=== PATIENT | male | born 1940 | race Caucasian/White ===

== ENCOUNTER 2023-08-05 06:54 | Inpatient (IN) ==
[2023-08-02 10:51] LABS: Basophils # (Auto) 0.03 K/mcL (0.00-0.30); Basophils % (Auto) 0.2 % (0.0-2.0); Eosinophils # (Auto) 0.04 K/mcL (0.00-0.70); Eosinophils % (Auto) 0.3 % (0.0-7.0); Hematocrit 28.6 % (40.1-51.0); Lymphocytes % (Auto) 5.4 % (15.5-49.0); Mean Cell Volume 85.6 fL (80.0-100.0); Mean Corpuscular HGB Conc 31.5 g/dL (31.0-36.0); Mean Platelet Volume 11.1 fL (8.8-12.5); Monocytes # (Auto) 0.75 K/mcL (0.10-0.90); Monocytes % (Auto) 5.8 % (1.0-12.0); Neutrophils % (Auto) 87.7 % (38.0-78.0); Platelet Count 267 K/mcL (140-440); RBC 3.34 M/mcL (4.63-6.08); Red Cell Distribution Width 17.5 % (11.5-14.5)
[2023-08-02 11:08] LABS: Blood Urea Nitrogen 48 mg/dL (8-23); Calcium 11.2 mg/dL (8.6-10.4); Carbon Dioxide 18 mmol/L (22-30); Chloride 103 mmol/L (96-108); Glomerular Filtration Rate 22; Glucose 105 mg/dL (70-105)
[2023-08-02 13:11] LABS: Hemoglobin A1C 5.8 % Hgb (4.0-6.0)
[2023-08-02 14:13] LABS: INR 3.2 (0.9-1.1)
[2023-08-05 07:18] LABS: Basophils # (Auto) 0.04 K/mcL (0.00-0.30); Basophils % (Auto) 0.3 % (0.0-2.0); Eosinophils # (Auto) 0.06 K/mcL (0.00-0.70); Eosinophils % (Auto) 0.5 % (0.0-7.0); Hematocrit 24.7 % (40.1-51.0); Hemoglobin 7.7 g/dL (13.7-17.5); Lymphocytes # (Auto) 1.15 K/mcL (1.50-4.80); Lymphocytes % (Auto) 9.2 % (15.5-49.0); Mean Cell Volume 85.5 fL (80.0-100.0); Mean Corpuscular HGB Conc 31.2 g/dL (31.0-36.0); Mean Platelet Volume 10.9 fL (8.8-12.5); Monocytes # (Auto) 0.75 K/mcL (0.10-0.90); Neutrophils % (Auto) 83.3 % (38.0-78.0); Platelet Count 299 K/mcL (140-440); RBC 2.89 M/mcL (4.63-6.08); Red Cell Distribution Width 17.4 % (11.5-14.5); WBC 12.6 K/mcL (4.5-11.0)
[2023-08-05 07:41] LABS: ALT/SGPT 18 U/L (<40); AST/SGOT 35 U/L (<40); Albumin 3.3 gm/dL (3.2-5.2); Albumin/Globulin Ratio 1.1 (1.0-2.3); Alkaline Phosphatase 77 U/L (39-117); Bilirubin,Total 0.8 mg/dL (0.1-1.0); Blood Urea Nitrogen 46 mg/dL (8-23); Calcium 11.2 mg/dL (8.6-10.4); Carbon Dioxide 15 mmol/L (22-30); Chloride 105 mmol/L (96-108); Globulin 2.9 gm/dL (2.2-3.7); Glomerular Filtration Rate 26; Glucose 183 mg/dL (70-105)
[2023-08-05 08:30] LABS: INR 2.1 (0.9-1.1); Prothrombin Time 24.3 sec (11.9-14.5)
[2023-08-05] MEDS ORDERED: POTASSIUM CHLORIDE 40 MEQ in DEXTROSE 5% IN WATER 500 ML IV PRN (12:14)
[2023-08-05] MEDS ORDERED: POLYETHYLENE GLYCOL 3350 17 GM PACKET PO PRN (12:14)
[2023-08-05] MEDS ORDERED: ONDANSETRON 4 MG/2 ML VIAL IV PRN (12:14)
[2023-08-05] MEDS ORDERED: POTASSIUM CHLORIDE 20 MEQ TABLET PO PRN ×2 (12:14)
[2023-08-05] MEDS ORDERED: IPRATROPIUM/ALBUTEROL 3 ML AMPUL.NEB NEB PRN (12:14)
[2023-08-05] MEDS ORDERED: METOPROLOL TARTRATE 5 MG/5 ML VIAL IV PRN (12:14)
[2023-08-05] MEDS: SODIUM BICARBONATE 650 MG TABLET PO SCH (12:45)
[2023-08-05] MEDS: 0.9 % SODIUM CHLORIDE 1,000 ML IV SCH (13:34)
[2023-08-05] MEDS: LACTATED RINGERS 1,000 ML IV ONE (14:58)
[2023-08-05] MEDS: 0.9 % SODIUM CHLORIDE 250 ML IV SCH (15:35)
[2023-08-05 16:58] LABS: Appearance,Urine HAZY (Clear); Bilirubin,Urine Negative (Negative); Color,Urine AMBER; Culture Indicated,Urine No; Glucose,Urine (UA) Negative (Negative); Ketones,Urine Negative (Negative); Leukocyte Esterase,Urine Negative /uL (Negative); Nitrate,Urine Negative (Negative); Protein,Urine >=500 mg/dL (Negative); Specific Gravity,Urine 1.018 (1.000-1.035); Urine RBC > 182 /hpf (0-1); Urine Squamous Epithelial Cell 0 /hpf (0-4); Urine WBC 0 /hpf (0-4)
[2023-08-05] MEDS: predniSONE 5 MG TABLET PO SCH (17:57)
[2023-08-05] MEDS: AMIODARONE HCL 200 MG TABLET PO SCH (17:57)
[2023-08-05 17:58] LABS: Hematocrit 29.2 % (40.1-51.0); Hemoglobin 9.2 g/dL (13.7-17.5)
[2023-08-05] MEDS: DOCUSATE SODIUM 100 MG CAPSULE PO SCH (20:26)
[2023-08-05] MEDS: ceFAZolin 2 GM in DEXTROSE 5% IN WATER 50 ML IV SCH (21:37)
[2023-08-05] MEDS: GENTAMICIN SULFATE 210 MG in 0.9 % SODIUM CHLORIDE 250 ML IV SCH (21:37)
[2023-08-06 05:58] LABS: Basophils # (Auto) 0.02 K/mcL (0.00-0.30); Basophils % (Auto) 0.2 % (0.0-2.0); Eosinophils # (Auto) 0.05 K/mcL (0.00-0.70); Eosinophils % (Auto) 0.5 % (0.0-7.0); Hematocrit 24.3 % (40.1-51.0); Lymphocytes # (Auto) 0.61 K/mcL (1.50-4.80); Lymphocytes % (Auto) 5.5 % (15.5-49.0); Mean Cell Volume 84.7 fL (80.0-100.0); Mean Corpuscular HGB Conc 32.9 g/dL (31.0-36.0); Monocytes % (Auto) 7.3 % (1.0-12.0); Neutrophils % (Auto) 85.7 % (38.0-78.0); Platelet Count 235 K/mcL (140-440); RBC 2.87 M/mcL (4.63-6.08); Red Cell Distribution Width 16.6 % (11.5-14.5)
[2023-08-06 06:37] LABS: ALT/SGPT 13 U/L (<40); AST/SGOT 29 U/L (<40); Albumin/Globulin Ratio 1.2 (1.0-2.3); Alkaline Phosphatase 69 U/L (39-117); Bilirubin,Direct 0.5 mg/dL (<0.3); Blood Urea Nitrogen 35 mg/dL (8-23); Calcium 10.8 mg/dL (8.6-10.4); Carbon Dioxide 20 mmol/L (22-30); Chloride 108 mmol/L (96-108); Globulin 2.5 gm/dL (2.2-3.7); Glomerular Filtration Rate 37; Glucose 104 mg/dL (70-105); Lactate Dehydrogenase 204 U/L (135-225); Phosphorous 1.9 mg/dL (2.5-4.5); Triglycerides 71 mg/dL (<150); Uric Acid 6.3 mg/dL (2.5-8.0)
[2023-08-06] MEDS: LEVOTHYROXINE SODIUM 112 MCG TABLET PO SCH (08:03)
[2023-08-06] MEDS: ALLOPURINOL 100 MG TABLET PO SCH (08:03)
[2023-08-06] MEDS: ATORVASTATIN 10 MG TABLET PO SCH (08:03)
[2023-08-06] MEDS: SODIUM BICARBONATE 650 MG TABLET PO SCH (08:03)
[2023-08-06] MEDS: SODIUM PHOSPHATE 30 MMOL in DEXTROSE 5% IN WATER 500 ML IV SCH (08:45)
[2023-08-06 09:45] LABS: INR 1.7 (0.9-1.1); Prothrombin Time 20.8 sec (11.9-14.5)
[2023-08-06] MEDS: LACTATED RINGERS 500 ML IV ONE (09:55)
[2023-08-06 12:20] LABS: Hemoglobin 7.8 g/dL (13.7-17.5)
[2023-08-06] MEDS: 0.9 % SODIUM CHLORIDE 250 ML IV SCH (13:15)
[2023-08-07 07:20] LABS: Basophils # (Auto) 0.02 K/mcL (0.00-0.30); Basophils % (Auto) 0.2 % (0.0-2.0); Eosinophils # (Auto) 0.07 K/mcL (0.00-0.70); Eosinophils % (Auto) 0.7 % (0.0-7.0); Hematocrit 26.4 % (40.1-51.0); Hemoglobin 8.6 g/dL (13.7-17.5); Lymphocytes # (Auto) 0.75 K/mcL (1.50-4.80); Lymphocytes % (Auto) 7.8 % (15.5-49.0); Mean Cell Volume 85.4 fL (80.0-100.0); Mean Corpuscular HGB Conc 32.6 g/dL (31.0-36.0); Mean Platelet Volume 10.9 fL (8.8-12.5); Monocytes # (Auto) 0.59 K/mcL (0.10-0.90); Monocytes % (Auto) 6.1 % (1.0-12.0); Neutrophils % (Auto) 84.5 % (38.0-78.0); Platelet Count 241 K/mcL (140-440); RBC 3.09 M/mcL (4.63-6.08); Red Cell Distribution Width 16.9 % (11.5-14.5); WBC 9.6 K/mcL (4.5-11.0)
[2023-08-07 07:28] LABS: ALT/SGPT 13 U/L (<40); AST/SGOT 30 U/L (<40); Albumin 2.9 gm/dL (3.2-5.2); Albumin/Globulin Ratio 1.1 (1.0-2.3); Alkaline Phosphatase 70 U/L (39-117); Bilirubin,Direct 0.5 mg/dL (<0.3); Blood Urea Nitrogen 24 mg/dL (8-23); Calcium 10.8 mg/dL (8.6-10.4); Carbon Dioxide 22 mmol/L (22-30); Chloride 104 mmol/L (96-108); Globulin 2.6 gm/dL (2.2-3.7); Glomerular Filtration Rate 56; Glucose 90 mg/dL (70-105); Lactate Dehydrogenase 210 U/L (135-225); Triglycerides 61 mg/dL (<150); Uric Acid 4.9 mg/dL (2.5-8.0)
[2023-08-07] MEDS ORDERED: fentaNYL 100 MCG/2 ML VIAL ONE (08:34)
[2023-08-07] MEDS ORDERED: PROPOFOL 200 MG/20 ML VIAL IV ONE (08:34)
[2023-08-07] MEDS ORDERED: ROCURONIUM 10 MG/ML ML IV ONE ×2 (08:34→10:12)
[2023-08-07] MEDS: ceFAZolin 2 GM in DEXTROSE 5% IN WATER 50 ML IV SCH (08:41)
[2023-08-07] MEDS ORDERED: PHENYLephrine 1 MG/10 ML SYRINGE (ANEST) ONE (09:46)
[2023-08-07] MEDS ORDERED: SUGAMMADEX SODIUM 200 MG/2 ML VIAL IV ONE (10:55)
[2023-08-07] MEDS ORDERED: IPRATROPIUM/ALBUTEROL 3 ML AMPUL.NEB NEB PRN (10:56)
[2023-08-07] MEDS: IOVERSOL 20 ML VIAL IJ ONE (11:00)
[2023-08-07] MEDS: LIDOCAINE 2% URO-JET 10 ML JEL.PF.APP UR ONE (11:28)
[2023-08-07] MEDS: 0.9 % SODIUM CHLORIDE 250 ML IV SCH (12:08)
[2023-08-07] MEDS: DOPamine 400 MG in PREMIX 1 BAG IV SCH (12:08)
[2023-08-07] MEDS: MAGNESIUM SULFATE 2 GM/50 ML BAG IV PRN (19:15)
[2023-08-07] MEDS: LACTATED RINGERS 500 ML IV ONE (22:40)
[2023-08-08 09:54] LABS: Basophils # (Auto) 0.01 K/mcL (0.00-0.30); Basophils % (Auto) 0.1 % (0.0-2.0); Eosinophils # (Auto) 0.07 K/mcL (0.00-0.70); Eosinophils % (Auto) 0.5 % (0.0-7.0); Hemoglobin 8.8 g/dL (13.7-17.5); Lymphocytes % (Auto) 4.1 % (15.5-49.0); Mean Cell Volume 89.7 fL (80.0-100.0); Mean Corpuscular HGB Conc 31.4 g/dL (31.0-36.0); Mean Platelet Volume 10.6 fL (8.8-12.5); Monocytes # (Auto) 0.93 K/mcL (0.10-0.90); Monocytes % (Auto) 6.3 % (1.0-12.0); Neutrophils % (Auto) 88.5 % (38.0-78.0); Platelet Count 270 K/mcL (140-440); RBC 3.12 M/mcL (4.63-6.08); Red Cell Distribution Width 17.7 % (11.5-14.5); WBC 14.7 K/mcL (4.5-11.0)
[2023-08-08] MEDS: 0.9 % SODIUM CHLORIDE 500 ML IV ONE ×2 (10:13→14:12)
[2023-08-08 13:20] LABS: Albumin 2.2 gm/dL (3.2-5.2); Blood Urea Nitrogen 22 mg/dL (8-23); Calcium 10.8 mg/dL (8.6-10.4); Carbon Dioxide 18 mmol/L (22-30); Chloride 104 mmol/L (96-108); Glomerular Filtration Rate 43; Glucose 115 mg/dL (70-105); Phosphorous 2.4 mg/dL (2.5-4.5)
[2023-08-08] MEDS: 0.9 % SODIUM CHLORIDE 250 ML IV SCH (15:36)
[2023-08-09 06:28] LABS: Basophils # (Auto) 0.03 K/mcL (0.00-0.30); Basophils % (Auto) 0.3 % (0.0-2.0); Eosinophils # (Auto) 0.15 K/mcL (0.00-0.70); Eosinophils % (Auto) 1.3 % (0.0-7.0); Hematocrit 24.9 % (40.1-51.0); Hemoglobin 7.9 g/dL (13.7-17.5); Lymphocytes # (Auto) 0.73 K/mcL (1.50-4.80); Lymphocytes % (Auto) 6.4 % (15.5-49.0); Mean Corpuscular HGB Conc 31.7 g/dL (31.0-36.0); Mean Platelet Volume 10.5 fL (8.8-12.5); Monocytes # (Auto) 0.77 K/mcL (0.10-0.90); Monocytes % (Auto) 6.8 % (1.0-12.0); Neutrophils % (Auto) 84.7 % (38.0-78.0); Platelet Count 276 K/mcL (140-440); RBC 2.83 M/mcL (4.63-6.08); Red Cell Distribution Width 17.5 % (11.5-14.5); WBC 11.4 K/mcL (4.5-11.0)
[2023-08-09 06:49] LABS: ALT/SGPT 8 U/L (<40); AST/SGOT 32 U/L (<40); Albumin 2.8 gm/dL (3.2-5.2); Albumin/Globulin Ratio 1.1 (1.0-2.3); Alkaline Phosphatase 65 U/L (39-117); Bilirubin,Direct 0.5 mg/dL (<0.3); Blood Urea Nitrogen 23 mg/dL (8-23); Calcium 10.9 mg/dL (8.6-10.4); Carbon Dioxide 21 mmol/L (22-30); Chloride 102 mmol/L (96-108); Globulin 2.5 gm/dL (2.2-3.7); Glomerular Filtration Rate 43; Glucose 85 mg/dL (70-105); Lactate Dehydrogenase 209 U/L (135-225); Phosphorous 1.9 mg/dL (2.5-4.5); Triglycerides 73 mg/dL (<150); Uric Acid 4.9 mg/dL (2.5-8.0)
[2023-08-09] MEDS: ACETAMINOPHEN 325 MG TABLET PO PRN (09:19)
[2023-08-09 14:19] LABS: Hematocrit 24.8 % (40.1-51.0); Hemoglobin 7.9 g/dL (13.7-17.5)
[2023-08-10 08:02] LABS: Basophils # (Auto) 0.03 K/mcL (0.00-0.30); Basophils % (Auto) 0.3 % (0.0-2.0); Eosinophils # (Auto) 0.18 K/mcL (0.00-0.70); Eosinophils % (Auto) 1.5 % (0.0-7.0); Hemoglobin 8.2 g/dL (13.7-17.5); Lymphocytes # (Auto) 0.73 K/mcL (1.50-4.80); Lymphocytes % (Auto) 6.3 % (15.5-49.0); Mean Cell Volume 88.1 fL (80.0-100.0); Mean Corpuscular HGB Conc 31.5 g/dL (31.0-36.0); Monocytes # (Auto) 0.76 K/mcL (0.10-0.90); Monocytes % (Auto) 6.5 % (1.0-12.0); Neutrophils % (Auto) 84.6 % (38.0-78.0); Platelet Count 307 K/mcL (140-440); RBC 2.95 M/mcL (4.63-6.08); Red Cell Distribution Width 17.7 % (11.5-14.5); WBC 11.7 K/mcL (4.5-11.0)
[2023-08-10 08:22] LABS: Blood Urea Nitrogen 22 mg/dL (8-23); Calcium 10.9 mg/dL (8.6-10.4); Carbon Dioxide 21 mmol/L (22-30); Chloride 102 mmol/L (96-108); Glomerular Filtration Rate 40; Glucose 88 mg/dL (70-105)
[2023-08-10] MEDS: LACTATED RINGERS 1,000 ML IV ONE (10:13)
[2023-08-10] MEDS: LACTATED RINGERS 1,000 ML IV SCH (17:51)
[2023-08-11 06:09] LABS: Basophils # (Auto) 0.03 K/mcL (0.00-0.30); Basophils % (Auto) 0.3 % (0.0-2.0); Eosinophils # (Auto) 0.15 K/mcL (0.00-0.70); Eosinophils % (Auto) 1.5 % (0.0-7.0); Hematocrit 23.8 % (40.1-51.0); Hemoglobin 7.6 g/dL (13.7-17.5); Lymphocytes # (Auto) 0.72 K/mcL (1.50-4.80); Mean Cell Volume 88.1 fL (80.0-100.0); Mean Corpuscular HGB Conc 31.9 g/dL (31.0-36.0); Mean Platelet Volume 10.8 fL (8.8-12.5); Monocytes # (Auto) 0.67 K/mcL (0.10-0.90); Monocytes % (Auto) 6.5 % (1.0-12.0); Neutrophils % (Auto) 83.7 % (38.0-78.0); Platelet Count 313 K/mcL (140-440); Red Cell Distribution Width 17.3 % (11.5-14.5); WBC 10.3 K/mcL (4.5-11.0)
[2023-08-11] MEDS: LACTATED RINGERS 1,000 ML IV SCH (10:14)
[2023-08-11] MEDS: 0.9 % SODIUM CHLORIDE 250 ML IV SCH (12:21)
[2023-08-11 15:38] LABS: Hematocrit 27.9 % (40.1-51.0)
[2023-08-12 06:32] LABS: Basophils # (Auto) 0.03 K/mcL (0.00-0.30); Basophils % (Auto) 0.3 % (0.0-2.0); Eosinophils # (Auto) 0.14 K/mcL (0.00-0.70); Eosinophils % (Auto) 1.4 % (0.0-7.0); Hematocrit 24.4 % (40.1-51.0); Hemoglobin 7.9 g/dL (13.7-17.5); Lymphocytes # (Auto) 0.71 K/mcL (1.50-4.80); Lymphocytes % (Auto) 7.3 % (15.5-49.0); Mean Cell Volume 87.5 fL (80.0-100.0); Mean Corpuscular HGB Conc 32.4 g/dL (31.0-36.0); Mean Platelet Volume 10.8 fL (8.8-12.5); Monocytes # (Auto) 0.69 K/mcL (0.10-0.90); Monocytes % (Auto) 7.1 % (1.0-12.0); Neutrophils % (Auto) 83.1 % (38.0-78.0); Platelet Count 270 K/mcL (140-440); RBC 2.79 M/mcL (4.63-6.08); Red Cell Distribution Width 16.6 % (11.5-14.5); WBC 9.7 K/mcL (4.5-11.0)
[2023-08-12 07:14] LABS: Albumin 2.6 gm/dL (3.2-5.2); Blood Urea Nitrogen 19 mg/dL (8-23); Calcium 10.7 mg/dL (8.6-10.4); Carbon Dioxide 23 mmol/L (22-30); Chloride 101 mmol/L (96-108); Glomerular Filtration Rate 47; Glucose 76 mg/dL (70-105); Phosphorous 1.5 mg/dL (2.5-4.5)
[2023-08-12] MEDS ORDERED: ceFAZolin 2 GM in DEXTROSE 5% IN WATER 50 ML IV SCH (12:15)
[2023-08-12] MEDS: ceFAZolin 2 GM in DEXTROSE 5% IN WATER 50 ML IV SCH (13:00)
[2023-08-12] MEDS ORDERED: PROPOFOL 200 MG/20 ML VIAL IV ONE (13:07)
[2023-08-12] MEDS ORDERED: fentaNYL 100 MCG/2 ML VIAL ONE (13:07)
[2023-08-12] MEDS ORDERED: ONDANSETRON 4 MG/2 ML VIAL ONE (13:07)
[2023-08-12] MEDS: GENTAMICIN SULFATE 210 MG in 0.9 % SODIUM CHLORIDE 250 ML IV SCH (13:30)
[2023-08-12] MEDS ORDERED: PHENYLephrine 1 MG/10 ML SYRINGE (ANEST) ONE (13:42)
[2023-08-12] MEDS ORDERED: ePHEDrine 50 MG/ML AMPUL IV ONE (13:44)
[2023-08-12] MEDS: IOVERSOL 20 ML VIAL IJ ONE (13:45)
[2023-08-12] MEDS: LIDOCAINE 2% URO-JET 10 ML JEL.PF.APP UR ONE (13:53)
[2023-08-12] MEDS ORDERED: IPRATROPIUM/ALBUTEROL 3 ML AMPUL.NEB NEB PRN (14:12)
[2023-08-12] MEDS: 0.9 % SODIUM CHLORIDE 250 ML IV SCH (15:57)
[2023-08-12 16:27] LABS: Hematocrit 28.1 % (40.1-51.0); Hemoglobin 8.9 g/dL (13.7-17.5)
[2023-08-13 07:23] LABS: Basophils # (Auto) 0.04 K/mcL (0.00-0.30); Basophils % (Auto) 0.4 % (0.0-2.0); Eosinophils # (Auto) 0.08 K/mcL (0.00-0.70); Eosinophils % (Auto) 0.8 % (0.0-7.0); Hematocrit 25.1 % (40.1-51.0); Hemoglobin 8.1 g/dL (13.7-17.5); Lymphocytes # (Auto) 0.74 K/mcL (1.50-4.80); Lymphocytes % (Auto) 7.3 % (15.5-49.0); Mean Cell Volume 87.2 fL (80.0-100.0); Mean Corpuscular HGB Conc 32.3 g/dL (31.0-36.0); Mean Platelet Volume 10.8 fL (8.8-12.5); Monocytes % (Auto) 6.9 % (1.0-12.0); Neutrophils % (Auto) 83.9 % (38.0-78.0); Platelet Count 308 K/mcL (140-440); RBC 2.88 M/mcL (4.63-6.08); Red Cell Distribution Width 16.7 % (11.5-14.5); WBC 10.2 K/mcL (4.5-11.0)
[2023-08-13 07:47] LABS: ALT/SGPT 24 U/L (<40); AST/SGOT 77 U/L (<40); Albumin 2.5 gm/dL (3.2-5.2); Alkaline Phosphatase 70 U/L (39-117); Bilirubin,Direct 0.5 mg/dL (<0.3); Bilirubin,Total 0.8 mg/dL (0.1-1.0); Blood Urea Nitrogen 18 mg/dL (8-23); Calcium 10.5 mg/dL (8.6-10.4); Carbon Dioxide 21 mmol/L (22-30); Chloride 101 mmol/L (96-108); Globulin 2.5 gm/dL (2.2-3.7); Glomerular Filtration Rate 47; Glucose 73 mg/dL (70-105); Lactate Dehydrogenase 292 U/L (135-225); Phosphorous 1.8 mg/dL (2.5-4.5); Triglycerides 70 mg/dL (<150); Uric Acid 3.8 mg/dL (2.5-8.0)
[2023-08-13] MEDS: PHOSPHORUS 250 MG TABLET PO SCH (09:14)
[2023-08-13] MEDS: ALBUMIN HUMAN 12.5 GM/50 ML VIAL IV ONE (11:22)
[2023-08-13] MEDS: FUROSEMIDE 40 MG/4 ML VIAL IV ONE (12:09)
[2023-08-13 16:31] LABS: Hematocrit 24.8 % (40.1-51.0); Hemoglobin 7.9 g/dL (13.7-17.5)
[2023-08-13] MEDS: 0.9 % SODIUM CHLORIDE 250 ML IV SCH (20:01)
[2023-08-14 06:59] LABS: Hematocrit 29.2 % (40.1-51.0); Hemoglobin 9.6 g/dL (13.7-17.5)
[2023-08-14 07:14] LABS: ALT/SGPT 33 U/L (<40); AST/SGOT 101 U/L (<40); Albumin 2.6 gm/dL (3.2-5.2); Alkaline Phosphatase 73 U/L (39-117); Bilirubin,Direct 0.9 mg/dL (<0.3); Bilirubin,Total 1.7 mg/dL (0.1-1.0); Blood Urea Nitrogen 18 mg/dL (8-23); Calcium 10.5 mg/dL (8.6-10.4); Carbon Dioxide 25 mmol/L (22-30); Chloride 98 mmol/L (96-108); Globulin 2.5 gm/dL (2.2-3.7); Glomerular Filtration Rate 47; Glucose 77 mg/dL (70-105); Lactate Dehydrogenase 297 U/L (135-225); Phosphorous 2.3 mg/dL (2.5-4.5); Triglycerides 62 mg/dL (<150); Uric Acid 3.9 mg/dL (2.5-8.0)
[2023-08-14] MEDS: SODIUM CHLORIDE 1 GM TABLET PO SCH (10:35)
[2023-08-15 06:35] LABS: ALT/SGPT 51 U/L (<40); AST/SGOT 131 U/L (<40); Albumin 2.8 gm/dL (3.2-5.2); Alkaline Phosphatase 84 U/L (39-117); Bilirubin,Total 1.6 mg/dL (0.1-1.0); Blood Urea Nitrogen 20 mg/dL (8-23); Calcium 10.9 mg/dL (8.6-10.4); Carbon Dioxide 23 mmol/L (22-30); Chloride 98 mmol/L (96-108); Globulin 2.7 gm/dL (2.2-3.7); Glomerular Filtration Rate 47; Glucose 68 mg/dL (70-105); Lactate Dehydrogenase 329 U/L (135-225); Phosphorous 2.2 mg/dL (2.5-4.5); Triglycerides 64 mg/dL (<150)
[2023-08-15 07:58] LABS: Hematocrit 31.8 % (40.1-51.0); Hemoglobin 10.2 g/dL (13.7-17.5)
[2023-08-15] MEDS: SENNOSIDES 1 TABLET PO PRN (09:22)
[2023-08-15] MEDS: SPIRONOLACTONE 25 MG TABLET PO SCH (09:25)
[2023-08-15] MEDS: SODIUM CHLORIDE 1 GM TABLET PO SCH (10:52)
[2023-08-15] MEDS ORDERED: BISACODYL 10 MG SUPP.RECT PR PRN (15:06)
[2023-08-16 06:26] LABS: ALT/SGPT 62 U/L (<40); AST/SGOT 140 U/L (<40); Albumin 2.7 gm/dL (3.2-5.2); Alkaline Phosphatase 84 U/L (39-117); Bilirubin,Total 1.5 mg/dL (0.1-1.0); Blood Urea Nitrogen 21 mg/dL (8-23); Calcium 10.7 mg/dL (8.6-10.4); Carbon Dioxide 22 mmol/L (22-30); Chloride 101 mmol/L (96-108); Globulin 2.7 gm/dL (2.2-3.7); Glomerular Filtration Rate 43; Glucose 68 mg/dL (70-105); Lactate Dehydrogenase 297 U/L (135-225); Phosphorous 2.1 mg/dL (2.5-4.5); Triglycerides 66 mg/dL (<150); Uric Acid 4.1 mg/dL (2.5-8.0)
[2023-08-16 07:59] LABS: Hemoglobin 9.8 g/dL (13.7-17.5)
== END 2023-08-16 14:15 | DRG 657 ==
LOC: SUR 06:54 → ICU 10:24 → MEDSUR 08-10 13:30
PROVIDERS: ADMIT Internal Medicine; ATTEND Internal Medicine